=== PATIENT | male | born 1990 | race Two or more races ===

== ENCOUNTER 2024-03-09 22:36 | Emergency (ER) | payer OTHER ==
[~2024-03-09] VITALS: Ht 175.3 cm; Wt 89.8 kg
[2024-03-10] MEDS ORDERED: METHYLPREDNISOLONE SOD SUCC 125 MG VIAL IM STA (00:25)
[2024-03-10] MEDS ORDERED: GUAIFENESIN 200 MG/10 ML BLIST.PACK PO STA (00:25)
[2024-03-10] MEDS ORDERED: ALBUTEROL SULFATE 3 ML/2.5 MG AMPUL.NEB IH SCH (00:30)
[2024-03-10] MEDS ORDERED: VENTOLIN HFA18 GM IH (01:30)
== END 2024-03-10 01:39 ==
LOC: ER 22:37
DX: J45.901 Unspecified asthma with (acute) exacerbation (principal); R05.9 Cough, unspecified
CPT/HCPCS: 96372; 99282; J3490